=== PATIENT | female | born 1940 | race Caucasian/White ===

== ENCOUNTER 2019-08-18 17:43 | Emergency (ER) | payer MEDICARE ==
[2019-08-18] MEDS ORDERED: Bupivacaine 0.5% 10 ML VIAL ONE (17:59)
[2019-08-18] MEDS ORDERED: Triple Antibiotic Oint 1 GM Packet ONE (18:39)
[2019-08-18] MEDS ORDERED: Adacel (T-DAP) 0.5 ML SYRINGE ONE (18:43)
== END 2019-08-18 19:00 | disposition home health service, planned readmission (86) ==
LOC: BURERS 17:43
DX: S61.212A Laceration without foreign body of right middle finger without damage to nail, initial encounter (principal); E03.9 Hypothyroidism, unspecified; I10 Essential (primary) hypertension; W26.8XXA Contact with other sharp object(s), not elsewhere classified, initial encounter
CPT/HCPCS: 12002; 90471; 90715; J3490

== ENCOUNTER 2022-07-20 16:30 | Inpatient (IN) | payer MEDICARE ==
[2022-07-20 20:11] VITALS: BMI 39.1
[2022-07-20] MEDS ORDERED: Ondansetron PF 4 MG/2 ML Vial SLOW IVP PRN (20:30)
[2022-07-20] MEDS ORDERED: Zolpidem Tartrate 5 MG TAB PO PRN (20:30)
[2022-07-20] MEDS ORDERED: HYDROcodone/Acetaminophen 5/325 mg Tablet PO PRN ×2 (20:30)
[2022-07-20] MEDS ORDERED: Calcium Carbonate 500 MG ChewTAB PO PRN (20:30)
[2022-07-20] MEDS ORDERED: Bisacodyl 5 MG TAB PO PRN (20:30)
[2022-07-20] MEDS ORDERED: Senokot S 8.6-50 MG TAB PO PRN (20:30)
[2022-07-20] MEDS ORDERED: Loperamide HCl 2 MG CAP PO PRN ×2 (20:30)
[2022-07-20] MEDS ORDERED: Bisacodyl 10 MG SUPP PR PRN (20:30)
[2022-07-20] MEDS ORDERED: Ondansetron ODT 4 MG TAB SL PRN (20:30)
[2022-07-20] MEDS ORDERED: Acetaminophen 650 MG Suppository PR PRN (20:30)
[2022-07-20] MEDS: Montelukast Sodium 10 mg Tablet PO SCH (20:42)
[2022-07-20] MEDS: Docusate 100 MG CAP PO SCH (20:42)
[2022-07-20] MEDS: Latanoprost 0.005% Ophth Soln 2.5 ml Bottle EA EYE SCH (20:42)
[2022-07-20] MEDS: Acetaminophen 325 MG TAB PO PRN (20:42)
[2022-07-21] MEDS: Levothyroxine Sodium 50 MCG TAB PO SCH (05:19)
[2022-07-21] MEDS: Cholecalciferol 1,000 UNITS (25 MCG) TAB PO SCH (10:01)
[2022-07-21] MEDS: Multivit, Therapeutic 1 TAB PO SCH (10:02)
[2022-07-21] MEDS: Docusate 100 MG CAP PO SCH ×2 (10:02→21:00)
[2022-07-21] MEDS: Rivaroxaban 15 MG TAB PO SCH (16:54)
[2022-07-21] MEDS: Montelukast Sodium 10 mg Tablet PO SCH (21:00)
[2022-07-21] MEDS: Latanoprost 0.005% Ophth Soln 2.5 ml Bottle EA EYE SCH (21:00)
[2022-07-21] MEDS: Acetaminophen 325 MG TAB PO PRN (21:02)
[2022-07-22] MEDS: Levothyroxine Sodium 50 MCG TAB PO SCH (05:19)
[2022-07-22] MEDS: Cholecalciferol 1,000 UNITS (25 MCG) TAB PO SCH (09:16)
[2022-07-22] MEDS: Multivit, Therapeutic 1 TAB PO SCH (09:17)
[2022-07-22] MEDS: Docusate 100 MG CAP PO SCH ×2 (09:17→20:48)
[2022-07-22 14:54] LABS: Bilirubin Negative (Negative); Blood, Urine Trace (Negative); Clarity Slightly Cloudy (Clear); Glucose, Urine (Dipstick) Negative (Negative); Ketone, Urine Negative (Negative); Leukocyte Negative (Negative); Nitrite Negative (Negative); Protein, Urine (Dipstick) Negative (Neg-Trace); Urobilinogen 0.2 mg/dL (Less than 2); pH, Urine 5.5 (5.0-9.0)
[2022-07-22 14:55] LABS: Specific Gravity, Urine 1.007 (1.002-1.036)
[2022-07-22 14:59] LABS: CAUTI Indications for Culture Pelvic or flank pain; RBC/HPF 0-3 HPF (0-3); WBC/HPF 0-3 HPF (0-3)
[2022-07-22 15:00] LABS: Bacteria/HPF 1+ HPF (None Seen); Squamous Epithelial 0-3 HPF (0-3)
[2022-07-22 15:01] LABS: Urine Culture Reflex No No
[2022-07-22 16:07] LABS: #Basophils 0.1 thou/uL (0.0-0.2); #Eosinphils 0.4 thou/uL (0.0-0.7); #Lymphocytes 1.7 thou/uL (1.20-3.40); #Monocytes 0.7 thou/uL (0.11-0.59); #Neutrophils 5.8 thou/uL (1.40-6.50); %Basophils 0.8 % (0.0-1.0); %Eosinophils 4.7 % (0.0-10.0); %Lymphocytes 19.2 % (21.0-51.0); %Monocytes 7.6 % (0.0-10.0); %Neutrophils 67.7 % (42.0-75.0); Hemoglobin 10.5 g/dL (12.0-16.0); Mean Corpuscular HGB CONC 30.9 g/dL (32.0-36.0); Mean Corpuscular Hemoglobin 28.2 pg (27.0-31.0); Mean Corpuscular Volume 91.3 fl (78.0-98.0); Mean Platelet Volume 5.5 fL (7.4-10.4); Platelet Count 281 10x3/uL (130-400); RBC Distribution Width 14.8 % (11.5-14.5); Red Blood Cell (RBC) Count 3.72 mill/uL (4.20-5.40); White Blood Cell (WBC) Count 8.6 10x3/uL (4.8-10.8)
[2022-07-22 16:17] LABS: ALT (SGPT) 14 U/L (8-55); AST (SGOT) 15 U/L (5-34); Alkaline Phosphatase 117 U/L (40-110); Anion Gap 12 mmol/L (10-20); BUN (Urea Nitrogen) 30 mg/dL (9.8-20.1); Bilirubin, Total 0.3 mg/dL (0.2-1.2); Calc. Creatinine Clearance 53 mL/min (70-130); Calcium 10.5 mg/dL (7.8-10.44); Carbon Dioxide 25 mmol/L (23-31); Chloride 103 mmol/L (98-107); Estimated GFR 39; Globulin 3.7 g/dL (2.4-3.5); Glucose 100 mg/dL (83-110); Potassium 4.1 mmol/L (3.5-5.1); Protein, Total 6.7 g/dL (5.8-8.1); Sodium 136 mmol/L (136-145)
[2022-07-22] MEDS: Rivaroxaban 15 MG TAB PO SCH (17:16)
[2022-07-22] MEDS: Montelukast Sodium 10 mg Tablet PO SCH (20:47)
[2022-07-22] MEDS: Latanoprost 0.005% Ophth Soln 2.5 ml Bottle EA EYE SCH (20:47)
[2022-07-23] MEDS ORDERED: Nystatin Cream 15 GM TUBE TOP PRN (01:03)
[2022-07-23] MEDS: Levothyroxine Sodium 50 MCG TAB PO SCH (05:10)
[2022-07-23] MEDS: Cholecalciferol 1,000 UNITS (25 MCG) TAB PO SCH (09:58)
[2022-07-23] MEDS: Docusate 100 MG CAP PO SCH ×2 (09:58→21:18)
[2022-07-23] MEDS: Multivit, Therapeutic 1 TAB PO SCH (09:59)
[2022-07-23] MEDS: Nystatin Cream 15 GM TUBE TOP SCH ×2 (10:00→21:15)
[2022-07-23] MEDS: Rivaroxaban 15 MG TAB PO SCH (18:03)
[2022-07-23] MEDS: Montelukast Sodium 10 mg Tablet PO SCH (21:18)
[2022-07-23] MEDS: Latanoprost 0.005% Ophth Soln 2.5 ml Bottle EA EYE SCH (21:18)
[2022-07-24] MEDS: Acetaminophen 325 MG TAB PO PRN (01:31)
[2022-07-24 04:56] LABS: #Basophils 0.1 thou/uL (0.0-0.2); #Eosinphils 0.5 thou/uL (0.0-0.7); #Monocytes 0.6 thou/uL (0.11-0.59); #Neutrophils 4.5 thou/uL (1.40-6.50); %Basophils 0.8 % (0.0-1.0); %Eosinophils 6.2 % (0.0-10.0); %Lymphocytes 26.6 % (21.0-51.0); %Monocytes 7.3 % (0.0-10.0); %Neutrophils 59.2 % (42.0-75.0); Hemoglobin 9.7 g/dL (12.0-16.0); Mean Corpuscular HGB CONC 32.2 g/dL (32.0-36.0); Mean Corpuscular Hemoglobin 28.6 pg (27.0-31.0); Mean Corpuscular Volume 88.9 fl (78.0-98.0); Mean Platelet Volume 5.5 fL (7.4-10.4); Platelet Count 258 10x3/uL (130-400); RBC Distribution Width 14.1 % (11.5-14.5); Red Blood Cell (RBC) Count 3.39 mill/uL (4.20-5.40); White Blood Cell (WBC) Count 7.6 10x3/uL (4.8-10.8)
[2022-07-24] MEDS: Levothyroxine Sodium 50 MCG TAB PO SCH (05:09)
[2022-07-24 05:19] LABS: ALT (SGPT) 13 U/L (8-55); AST (SGOT) 12 U/L (5-34); Albumin 2.8 g/dL (3.4-4.8); Alkaline Phosphatase 107 U/L (40-110); Anion Gap 13 mmol/L (10-20); BUN (Urea Nitrogen) 29 mg/dL (9.8-20.1); Bilirubin, Total 0.3 mg/dL (0.2-1.2); Calc. Creatinine Clearance 54 mL/min (70-130); Calcium 10.5 mg/dL (7.8-10.44); Carbon Dioxide 24 mmol/L (23-31); Chloride 102 mmol/L (98-107); Estimated GFR 40; Globulin 3.5 g/dL (2.4-3.5); Glucose 95 mg/dL (83-110); Protein, Total 6.3 g/dL (5.8-8.1); Sodium 135 mmol/L (136-145)
[2022-07-24] MEDS: Nystatin Cream 15 GM TUBE TOP SCH ×2 (08:50→21:02)
[2022-07-24] MEDS: Cholecalciferol 1,000 UNITS (25 MCG) TAB PO SCH (08:51)
[2022-07-24] MEDS: Docusate 100 MG CAP PO SCH ×2 (08:51→21:03)
[2022-07-24] MEDS: Multivit, Therapeutic 1 TAB PO SCH (08:52)
[2022-07-24] MEDS: Rivaroxaban 15 MG TAB PO SCH (17:40)
[2022-07-24] MEDS: Montelukast Sodium 10 mg Tablet PO SCH (21:02)
[2022-07-24] MEDS: Latanoprost 0.005% Ophth Soln 2.5 ml Bottle EA EYE SCH (21:03)
[2022-07-25] MEDS: Acetaminophen 325 MG TAB PO PRN (02:44)
[2022-07-25] MEDS: Levothyroxine Sodium 50 MCG TAB PO SCH (05:07)
[2022-07-25] MEDS: Cholecalciferol 1,000 UNITS (25 MCG) TAB PO SCH (08:49)
[2022-07-25] MEDS: Docusate 100 MG CAP PO SCH ×2 (08:49→21:15)
[2022-07-25] MEDS: Multivit, Therapeutic 1 TAB PO SCH (08:49)
[2022-07-25] MEDS: Nystatin Cream 15 GM TUBE TOP SCH ×2 (08:50→21:15)
[2022-07-25] MEDS: Rivaroxaban 15 MG TAB PO SCH (17:39)
[2022-07-25] MEDS: Latanoprost 0.005% Ophth Soln 2.5 ml Bottle EA EYE SCH (21:15)
[2022-07-25] MEDS: Montelukast Sodium 10 mg Tablet PO SCH (21:15)
[2022-07-26] MEDS: Acetaminophen 325 MG TAB PO PRN (01:18)
[2022-07-26] MEDS: Levothyroxine Sodium 50 MCG TAB PO SCH (05:22)
[2022-07-26] MEDS: Docusate 100 MG CAP PO SCH ×2 (09:28→20:35)
[2022-07-26] MEDS: Multivit, Therapeutic 1 TAB PO SCH (09:29)
[2022-07-26] MEDS: Cholecalciferol 1,000 UNITS (25 MCG) TAB PO SCH (09:29)
[2022-07-26] MEDS: Nystatin Cream 15 GM TUBE TOP SCH ×2 (09:34→20:36)
[2022-07-26] MEDS: Rivaroxaban 15 MG TAB PO SCH (17:09)
[2022-07-26] MEDS: Montelukast Sodium 10 mg Tablet PO SCH (20:35)
[2022-07-26] MEDS: Latanoprost 0.005% Ophth Soln 2.5 ml Bottle EA EYE SCH (20:36)
[2022-07-27] MEDS: Acetaminophen 325 MG TAB PO PRN ×2 (03:13→20:22)
[2022-07-27] MEDS: Levothyroxine Sodium 50 MCG TAB PO SCH (05:58)
[2022-07-27] MEDS: Multivit, Therapeutic 1 TAB PO SCH (08:35)
[2022-07-27] MEDS: Docusate 100 MG CAP PO SCH ×2 (08:35→20:22)
[2022-07-27] MEDS: Cholecalciferol 1,000 UNITS (25 MCG) TAB PO SCH (08:35)
[2022-07-27] MEDS: Nystatin Cream 15 GM TUBE TOP SCH ×2 (08:38→20:22)
[2022-07-27] MEDS: Rivaroxaban 15 MG TAB PO SCH (17:23)
[2022-07-27] MEDS: Latanoprost 0.005% Ophth Soln 2.5 ml Bottle EA EYE SCH (20:21)
[2022-07-27] MEDS: Montelukast Sodium 10 mg Tablet PO SCH (20:22)
[2022-07-28] MEDS: Levothyroxine Sodium 50 MCG TAB PO SCH (05:06)
[2022-07-28] MEDS: Cholecalciferol 1,000 UNITS (25 MCG) TAB PO SCH (08:53)
[2022-07-28] MEDS: Multivit, Therapeutic 1 TAB PO SCH (08:54)
[2022-07-28] MEDS: Docusate 100 MG CAP PO SCH ×2 (08:54→21:21)
[2022-07-28] MEDS: Nystatin Cream 15 GM TUBE TOP SCH ×2 (08:54→21:21)
[2022-07-28] MEDS: Rivaroxaban 15 MG TAB PO SCH (17:28)
[2022-07-28] MEDS: Acetaminophen 325 MG TAB PO PRN (21:19)
[2022-07-28] MEDS: Montelukast Sodium 10 mg Tablet PO SCH (21:19)
[2022-07-28] MEDS: Latanoprost 0.005% Ophth Soln 2.5 ml Bottle EA EYE SCH (21:20)
[2022-07-29] MEDS: Levothyroxine Sodium 50 MCG TAB PO SCH (05:59)
[2022-07-29] MEDS: Nystatin Cream 15 GM TUBE TOP SCH ×2 (08:25→20:38)
[2022-07-29] MEDS: Cholecalciferol 1,000 UNITS (25 MCG) TAB PO SCH (08:28)
[2022-07-29] MEDS: Multivit, Therapeutic 1 TAB PO SCH (08:28)
[2022-07-29] MEDS: Docusate 100 MG CAP PO SCH ×2 (08:28→20:38)
[2022-07-29] MEDS: Rivaroxaban 15 MG TAB PO SCH (17:30)
[2022-07-29 18:11] LABS: Bilirubin Negative (Negative); Blood, Urine Moderate (Negative); Clarity Slightly Cloudy (Clear); Glucose, Urine (Dipstick) Negative (Negative); Ketone, Urine Negative (Negative); Leukocyte Large (Negative); Nitrite Positive (Negative); Protein, Urine (Dipstick) 30 mg/dL (Neg-Trace); Urobilinogen 0.2 mg/dL (Less than 2); pH, Urine 5.5 (5.0-9.0)
[2022-07-29 18:16] LABS: CAUTI Indications for Culture Fever or rigors; WBC/HPF Greater than 50 HPF (0-3)
[2022-07-29 18:18] LABS: Bacteria/HPF 4+ HPF (None Seen); Squamous Epithelial 0-3 HPF (0-3)
[2022-07-29 18:19] LABS: Urine Culture Reflex Yes Yes
[2022-07-29] MEDS: Montelukast Sodium 10 mg Tablet PO SCH (20:38)
[2022-07-29] MEDS: Latanoprost 0.005% Ophth Soln 2.5 ml Bottle EA EYE SCH (20:38)
[2022-07-30] MEDS: Levothyroxine Sodium 50 MCG TAB PO SCH (05:30)
[2022-07-30] MEDS: Cholecalciferol 1,000 UNITS (25 MCG) TAB PO SCH (09:23)
[2022-07-30] MEDS: Docusate 100 MG CAP PO SCH ×2 (09:33→20:04)
[2022-07-30] MEDS: Multivit, Therapeutic 1 TAB PO SCH (09:33)
[2022-07-30] MEDS: Nystatin Cream 15 GM TUBE TOP SCH ×2 (09:36→20:05)
[2022-07-30] MEDS: Rivaroxaban 15 MG TAB PO SCH (17:11)
[2022-07-30] MEDS ORDERED: diphenhydrAMINE 25 MG CAP PO PRN (19:18)
[2022-07-30] MEDS: Montelukast Sodium 10 mg Tablet PO SCH (20:04)
[2022-07-30] MEDS: Latanoprost 0.005% Ophth Soln 2.5 ml Bottle EA EYE SCH (20:05)
[2022-07-30] MEDS: Melatonin 3 MG TAB PO PRN (23:18)
[2022-07-31 05:40] LABS: Anion Gap 13 mmol/L (10-20); Calc. Creatinine Clearance 53 mL/min (70-130); Calcium 10.8 mg/dL (7.8-10.44); Carbon Dioxide 25 mmol/L (23-31); Chloride 103 mmol/L (98-107); Estimated GFR 39; Glucose 103 mg/dL (83-110); Potassium 3.8 mmol/L (3.5-5.1); Sodium 137 mmol/L (136-145)
[2022-07-31] MEDS: Levothyroxine Sodium 50 MCG TAB PO SCH (05:54)
[2022-07-31 06:26] LABS: BUN (Urea Nitrogen) 32 mg/dL (9.8-20.1)
[2022-07-31 06:41] LABS: Hemoglobin 10.6 g/dL (12.0-16.0); Mean Corpuscular HGB CONC 31.8 g/dL (32.0-36.0); Mean Corpuscular Hemoglobin 28.3 pg (27.0-31.0); Mean Platelet Volume 5.1 fL (7.4-10.4); Platelet Count 359 10x3/uL (130-400); RBC Distribution Width 14.2 % (11.5-14.5); Red Blood Cell (RBC) Count 3.73 mill/uL (4.20-5.40); White Blood Cell (WBC) Count 8.2 10x3/uL (4.8-10.8)
[2022-07-31] MEDS: Docusate 100 MG CAP PO SCH ×2 (08:36→21:37)
[2022-07-31] MEDS: Cholecalciferol 1,000 UNITS (25 MCG) TAB PO SCH (08:36)
[2022-07-31] MEDS: Nystatin Cream 15 GM TUBE TOP SCH ×2 (08:38→21:38)
[2022-07-31] MEDS: Multivit, Therapeutic 1 TAB PO SCH (08:38)
[2022-07-31] MEDS: Metoprolol Tartrate 25 MG TAB PO SCH ×2 (08:38→21:37)
[2022-07-31] MEDS: Rivaroxaban 15 MG TAB PO SCH (17:14)
[2022-07-31] MEDS: Melatonin 3 MG TAB PO PRN (21:37)
[2022-07-31] MEDS: Latanoprost 0.005% Ophth Soln 2.5 ml Bottle EA EYE SCH (21:37)
[2022-07-31] MEDS: Montelukast Sodium 10 mg Tablet PO SCH (21:37)
[2022-08-01] MEDS: Levothyroxine Sodium 50 MCG TAB PO SCH (05:25)
[2022-08-01 06:17] VITALS: TEMP 97.9
[2022-08-01 08:26] VITALS: BP 110/64
[2022-08-01] MEDS: Metoprolol Tartrate 25 MG TAB PO SCH (08:57)
[2022-08-01] MEDS: Docusate 100 MG CAP PO SCH (08:57)
[2022-08-01] MEDS: Multivit, Therapeutic 1 TAB PO SCH (08:57)
[2022-08-01] MEDS: Cholecalciferol 1,000 UNITS (25 MCG) TAB PO SCH (08:57)
[2022-08-01] MEDS ORDERED: Cefdinir 300 MG CAP PO SCH (09:00)
== END 2022-08-01 11:00 | DRG 948 ==
LOC: BURMED 16:30
PROVIDERS: ADMIT Family Medicine; ATTEND Family Medicine
DX: R53.1 Weakness (principal); I48.20 Chronic atrial fibrillation, unspecified; N18.32 Chronic kidney disease, stage 3b; N39.0 Urinary tract infection, site not specified; I12.9 Hypertensive chronic kidney disease with stage 1 through stage 4 chronic kidney disease, or unspecified chronic kidney disease; D64.9 Anemia, unspecified; R21 Rash and other nonspecific skin eruption; E66.9 Obesity, unspecified; J45.909 Unspecified asthma, uncomplicated; I95.9 Hypotension, unspecified; B96.89 Other specified bacterial agents as the cause of diseases classified elsewhere; I35.0 Nonrheumatic aortic (valve) stenosis; I34.0 Nonrheumatic mitral (valve) insufficiency; Z79.01 Long term (current) use of anticoagulants; Z88.2 Allergy status to sulfonamides; Z88.0 Allergy status to penicillin; Z88.8 Allergy status to other drugs, medicaments and biological substances; Z88.1 Allergy status to other antibiotic agents; Z79.82 Long term (current) use of aspirin; Z79.899 Other long term (current) drug therapy; Z79.51 Long term (current) use of inhaled steroids; Z68.39 Body mass index [BMI] 39.0-39.9, adult
CPT/HCPCS: 36415; 70450; 74176; 80048; 80053; 81001; 85025; 85027; 87077; 87086; 87186